=== PATIENT | female | born 1970 | race Two or more races ===

== ENCOUNTER 2017-06-09 21:36 | Emergency (ER) | payer OTHER ==
[~2017-06-09] VITALS: Ht 160 cm; Wt 49.9 kg
[2017-06-10] MEDS ORDERED: ZOFRAN4 MG PO (04:46)
[2017-06-10] MEDS ORDERED: PEPCID40 MG PO (04:46)
== END 2017-06-10 04:43 | disposition home or self-care (01) ==
LOC: ER 21:36
DX: K29.70 Gastritis, unspecified, without bleeding (principal)